=== PATIENT | female | born 1955 | race Caucasian/White ===

== ENCOUNTER 2016-11-26 09:03 | Outpatient (CLI) | payer BC | END 2016-11-26 09:04 | disposition home or self-care (01) | DX: Z12.31 Encounter for screening mammogram for malignant neoplasm of breast (principal); Z80.3 Family history of malignant neoplasm of breast ==

== ENCOUNTER 2016-11-26 09:05 | Outpatient (CLI) | payer BC | END 2016-11-26 09:06 | disposition home or self-care (01) | DX: M85.88 Other specified disorders of bone density and structure, other site (principal) ==

== ENCOUNTER 2018-02-04 09:16 | Outpatient (CLI) | payer OTHER ==
--- NOTE | 2018-02-07 17:57 | Mammography Report ---
Procedure Date: 02/04/2018 Accession Number: [id number] / [id number] Procedure: CASH - Screening Mammo Dig Bilat CPT Code: FULL RESULT: EXAM: Screening Mammo Dig Bilat DATE: 02/04/2018 9:39 AM CLINICAL HISTORY: 62 year-old nulliparous female with a family history of breast cancer in the mother and sister and grandmother at age 50 and the aunt at age 55. TECHNIQUE: Bilateral CC and MLO views were obtained. COMPARISON: 11/26/2016, 10/16/2015, 10/18/2014, 09/25/2014. FINDINGS: The breasts demonstrate scattered fibroglandular densities bilaterally. The breasts contain typically benign ossifications bilaterally. No suspicious masses, clustered microcalcifications, or regions of architectural distortion are identified. IMPRESSION: Benign findings RECOMMENDATION: Routine annual screening unless otherwise clinically indicated. BIRADS CATEGORY 2: Benign findings STANDARD QUALIFYING STATEMENTS: 1. This examination was reviewed with the aid of Computer-Aided Detection (CAD). 2. A negative or benign imaging report should not delay biopsy if clinically suspicious findings are present. Consider surgical consultation if warrented. More than 5% of cancers are not identified by imaging. 3. Dense breasts may obscure an underlying neoplasm.
== END 2018-02-04 09:17 | disposition home or self-care (01) ==
LOC: DI 09:16
PROVIDERS: ATTEND Internal Medicine
DX: Z12.31 Encounter for screening mammogram for malignant neoplasm of breast (principal); Z80.3 Family history of malignant neoplasm of breast
CPT/HCPCS: 77067

== ENCOUNTER 2020-10-29 13:07 | Outpatient (CLI) | payer BC ==
--- NOTE | 2020-10-30 09:37 | Mammography Report ---
BILATERAL DIGITAL SCREENING MAMMOGRAM 3D/2D: 10/29/2020 CLINICAL: Routine screening. Comparison is made to exams dated: 02/04/2018 mammogram, 11/26/2016 mammogram, 10/16/2015 mammogram, 09/24 mammogram, and 09/25/2014 mammogram - [facility]. The tissue of both breasts is heterogeneously dense. This may lower the sensitivity of mammography. No significant masses, calcifications, or other findings are seen in either breast. There has been no significant interval change. IMPRESSION: NEGATIVE There is no mammographic evidence of malignancy. A 1 year screening mammogram is recommended. This exam was interpreted at Station ID: [id number]. NOTE: For mammograms, a report in lay terms will be sent to the patient. Approximately 15% of breast malignancies will not be visualized mammographically. In the management of a palpable breast mass, a negative mammogram must not discourage biopsy of a clinically suspicious lesion. Electronically Signed By: Arsalan Coats M.D. [email or web address]:10/29/2020 16:40:23 ACR BI-RADS Category 1: Negative 3341F PARENCHYMAL PATTERN: (D) - The breast(s) demonstrate(s) heterogeneously dense fibroglandular parailiny ma. BI-RADS CATEGORY: (1) - 1 RECOMMENDATION: (ANNUAL) - Recommend routine annual screening mammography. [id number] 1 year screening LATERALITY: (B)
== END 2020-10-29 13:08 | disposition home or self-care (01) ==
LOC: DI 13:07
DX: Z12.31 Encounter for screening mammogram for malignant neoplasm of breast (principal)

== ENCOUNTER 2021-04-03 08:00 | Outpatient (CLI) | payer BC ==
--- NOTE | 2021-04-03 16:12 | XRAY Report ---
PROCEDURE: Foot 3 View RT INDICATIONS: CONTUSION TO RIGHT FOOT TECHNIQUE: 3 views of the foot were acquired. COMPARISON: None. FINDINGS: Bones: Acute oblique fracture through mid shaft of fifth metatarsal bone is seen with minimal lateral displacement at fracture site. No other fracture or dislocation. No suspicious bony lesions. Soft tissues: No tibiotalar joint effusion. Achilles tendon appears normal. IMPRESSION: Minimally displaced oblique fracture through mid shaft of fifth metatarsal bone. Reviewed by: Wilber Friedman MD on 04/03/2021 4:10 PM PDT Approved by: Wilber Friedman MD on 04/03/2021 4:10 PM PDT Station ID: [id number]
== END 2021-04-03 23:59 | disposition home or self-care (01) ==
LOC: DI.N 08:00
PROVIDERS: ATTEND Nurse Practitioner
DX: S92.351A Displaced fracture of fifth metatarsal bone, right foot, initial encounter for closed fracture (principal)

== ENCOUNTER 2021-12-13 17:00 | Emergency (ER) | payer MEDICARE, BC ==
[2021-12-13] MEDS ORDERED: predniSONE 20 MG TABLET PO STA (18:03)
[2021-12-13] MEDS ORDERED: diphenhydrAMINE 25 MG CAPSULE PO STA (18:03)
--- NOTE | 2021-12-13 18:53 | ED Physician Documentation ---
History of Present Illness - Stated complaint Stated Complaint: R FOOT SWELLING - Chief complaint Chief Complaint: Ext Problem - History obtained from History obtained from: Patient - History of Present Illness Timing: Today Pain level max: 3 Pain level now: 2 - Additonal information Additional information: 66-year-old female states that she believes she was stung by something on the right foot. Noted swelling and redness. Came in for evaluation. She was out in the garden when this happened. Does not recall seeing anything. Tetanus up-to-date. Review of Systems Constitutional: denies: Fever, Chills Nose: denies: Rhinorrhea / runny nose, Congestion Respiratory: denies: Dyspnea, Cough, Wheezing GI: denies: Nausea, Vomiting, Diarrhea Skin: denies: Rash Musculoskeletal: denies: Neck pain, Back pain Neurologic: denies: Headache PD PAST MEDICAL HISTORY - Past Medical History Past Medical History: Yes Cardiovascular: None Respiratory: None Neuro: None Endocrine/Autoimmune: None GI: None [employer]ATOR: None : None HEENT: None Psych: None Musculoskeletal: None Derm: None - Past Surgical History Past Surgical History: No - Present Medications Home Medications: Ambulatory Orders Medication Instructions Recorded Confirmed No Known Home Medications 12/13/21 12/13/21 - Allergies Allergies/Adverse Reactions: Allergies Allergy/AdvReac Type Severity Reaction Status Date / Time No Known Drug Allergies Allergy Verified 12/13/21 17:15 - Social History Does the pt smoke?: No Smoking Status: Former smoker Does the pt drink ETOH?: Yes ETOH Use: Wine Does the pt have substance abuse?: No - Immunizations Immunizations are current?: Yes Immunizations: TDAP current <10years PD ED PE NORMAL - Vitals Vital signs reviewed: Yes - General General: Alert and oriented X 3, No acute distress - HEENT HEENT: Moist mucous membranes - Derm Derm: Warm and dry - Extremities Extremities: Other (Right foot - Appears to be a sting versus bite to the dorsal aspect of the distal first metatarsal. Small amount of swelling and erythema. Neurovascular intact.) - Neuro Neuro: Alert and oriented X 3 - Psych Psych: Normal mood, Normal affect Results - Vitals Vitals: Vital Signs - 24 hr 12/13/21 12/13/21 17:16 19:06 Temperature 37.0 C 36.9 C Heart Rate 68 73 Respiratory 18 16 Rate Blood Pressure 198/90 H 202/96 H O2 Saturation 97 99 Oxygen O2 Source Room air PD MEDICAL DECISION MAKING - ED course Complexity details: considered differential, d/w patient, d/w family ED course: Patient with what appears to be a localized allergic reaction to an insect bite or sting. Was given prednisone and Benadryl. The redness and swelling nearly resolved within half an hour. No evidence of anaphylaxis. No difficulty breathing. We will continue Benadryl at home as needed. Patient counseled regarding signs and symptoms for which I believe and urgent re-evaluation would be necessary. Patient with good understanding of and agreement to plan and is comfortable going home at this time This document was made in part using voice recognition software. While efforts are made to proofread this document, sound alike and grammatical errors may occur. Departure - Departure Disposition: 01 Home, Self Care Clinical Impression: Allergic reaction to insect bite Condition: Good Instructions: ED Bite Sting Insect Local Allergic React Follow-Up: Edwige Chowdary MD [Primary Care Provider] - Comments: You can use Benadryl as needed at home. Usually a single dose of steroid will be effective. Please follow-up with your doctor as needed for further care. Return for worsening symptoms, difficulty breathing, sore throat or throat swelling. Discharge Date/Time: 12/13/21 19:08
[2021-12-13 19:06] VITALS: BP 202/96
== END 2021-12-13 19:08 | disposition home or self-care (01) ==
LOC: ED 17:00
DX: T63.481A Toxic effect of venom of other arthropod, accidental (unintentional), initial encounter (principal); R22.41 Localized swelling, mass and lump, right lower limb; F17.200 Nicotine dependence, unspecified, uncomplicated
CPT/HCPCS: 99282; A9270; J7512

== ENCOUNTER 2022-06-16 12:32 | Outpatient (CLI) | payer MEDICARE, BC ==
--- NOTE | 2022-06-17 10:06 | Ultrasound Report ---
LIMITED ULTRASOUND OF RIGHT BREAST: 06/16/2022 CLINICAL: Palpable right breast lump. Comparison is made to exams dated: 06/16/2022 mammogram, 10/29/2020 mammogram, 02/04/2018 mammogram, 11/26/2016 mammogram, 10/16/2015 mammogram, and 10/18/2014 mammogram - [facility]. Ultrasound of the right breast 7 o'clock region was performed. Red scale images of the real-time ex amination were reviewed. No significant abnormalities were seen sonographically in the right breast. Specifically, no finding to correspond to the patient's palpable abnormality. IMPRESSION: NEGATIVE There is no sonographic correlate to the patient's palpable abnormality and no evidence of malignancy . Return to annual mammogram screening schedule is recommended. Findings and recommendations were conveyed to the patient at time of exam. This exam was interpreted at Station ID: [id number]. Electronically Signed By: Renuka resendiz/:06/16/2022 13:31:20 Ultrasound BI-RADS: 1 Negative BI-RADS CATEGORY: (1) - 1 Mammogram [id number] return to screening LATERALITY: (B)
--- NOTE | 2022-06-17 10:06 | Mammography Report ---
BILATERAL DIGITAL DIAGNOSTIC MAMMOGRAM 3D/2D: 06/16/2022 CLINICAL: Palpable right breast lump. Due for bilateral. Comparison is made to exams dated: 10/29/2020 mammogram, 02/04/2018 mammogram, 11/26/2016 mammogram, 10/15 mammogram, 10/18/2014 mammogram, and 09/25/2014 mammogram - [facility]. There are scattered areas of fibroglandular density in both breasts (category b / 25%-50% glandular t issue). No significant masses, calcifications, or other findings are seen in either breast. Specifically, no finding to correspond to the patient's palpable abnormality. Mammograms are otherwise stable. IMPRESSION: INCOMPLETE: NEEDS ADDITIONAL IMAGING EVALUATION There is no abnormality seen in the right breast to correspond with the palpable abnormality at 5 o'c lock. Ultrasound is recommended for full evaluation of this area. This was performed immediately fol lowing this exam. Mammograms are otherwise stable. This exam was interpreted at Station ID: [id number]. NOTE: For mammograms, a report in lay terms will be sent to the patient. Approximately 15% of breast malignancies will not be visualized mammographically. In the management of a palpable breast mass, a negative mammogram must not discourage biopsy of a clinically suspicious lesion. Electronically Signed By: Renuka resendiz/:06/16/2022 13:17:41 ACR BI-RADS Category 0: Incomplete 3340F PARENCHYMAL PATTERN: (A) - The breast(s) demonstrate(s) scattered fibroglandular densities. BI-RADS CATEGORY: (0) - 0 Ultrasound [id number] Immediate follow-up LATERALITY: (B)
== END 2022-06-16 12:33 | disposition home or self-care (01) ==
LOC: DI 12:32
PROVIDERS: ATTEND Internal Medicine
DX: N63.13 Unspecified lump in the right breast, lower outer quadrant (principal); Z84.89 Family history of other specified conditions